=== PATIENT | female | born 1985 | race Caucasian/White ===

== ENCOUNTER 2020-03-17 13:12 | Outpatient (CLI) | payer BC ==
[2020-03-17 13:52] LABS: Appearance,Urine Cloudy (Clear); Bacteria,Urine Occasional /hpf; Bilirubin,Urine Negative (Negative); Blood,Urine Negative (Negative); Color,Urine Light Yellow; Glucose,Urine (UA) Negative (Negative); Ketones,Urine Negative (Negative); Leukocyte Esterase,Urine Negative (Negative); Mucus,Urine Rare /hpf; Nitrite,Urine Negative (Negative); PH, Urine 6.5 (5.0-8.0); Protein,Urine Negative (Negative); Specific Gravity,Urine 1.007 (1.001-1.035); Squamous Epithelial Cell,Urine 2 /hpf (0-4); Urobilinogen,Urine <2.0 mg/dL (<2.0); WBC,Urine 1 /hpf (0-5)
[2020-03-17 14:16] VITALS: BP 118/72; PULSE 115; RESP 18; TEMP 96.2
--- NOTE | 2020-03-25 08:53 | P.MSEPDOC ---
Presenting Problems - Arrival Data Date of Arrival on Unit: 03/17/20 Time of Arrival on Unit: 13:00 Mode of Transport: Ambulatory - Complaint OB-Reason for Admission/Chief Complaint: Rule Out SROM Comment: tightening & back pain Medical History - Information : 3 Para: 1 Term: 1 : 0 Abortions: Spontaneous or Elective: 1 Number of Living Children: 1 - Gestational Age Gestational Age by KARIN (wks/days): 39 Weeks and 0 Days - History Complications: Smoker Review of Systems - Review of Systems Constitutional: No problems Breast: No problems ENT: No problems Cardiovascular: No problems Respiratory: No problems Gastrointestinal: No problems Genitourinary: No problems Musculoskeletal: No problems Neurological: No problems Skin: No problems Vital Signs - Temperature Temperature: 96.2 F Temperature Source: Temporal Artery Scan - Pulse Right Sitting Brachial Pulse Rate: 115 Pulse Assessment Method: Automatic Cuff - Respirations Respiratory Rate: 18 O2 Sat by Pulse Oximetry: 96 - Blood Pressure Right Arm Sitting Blood Pressure: 118/72 Blood Pressure Mean: 87 Blood Pressure Source: Automatic Cuff Medical Screen Scoring (Pre) - Cervical Exam Dilation: 1-3 cm = 1 Membranes: Intact - Uterine Contractions Frequency: > 5 minutes apart = 1 Duration: N/A Intensity: N/A - Maternal Vital Signs Maternal Temperature: N/A Maternal Blood Pressure: N/A Signs of Preeclampsia: N/A Maternal Respirations: N/A - Maternal Trauma Maternal Trauma: N/A - Assessment - Baby A Baseline FHR: 130 Heart Rate - NICHD Category: Category I (Normal) = 0 NST: Reactive Position: N/A Station: N/A - Total Score - Baby A Total Score - Baby A: 2 - Total Score - Baby B Total Score - Baby B: 2 - Total Score - Baby C Total Score - Baby C: 2 - Level of Risk - Baby A Level of Risk - Baby A: Low (0-5) - Level of Risk - Baby B Level of Risk - Baby B: Low (0-5) - Level of Risk - Baby C Level of Risk - Baby C: Low (0-5) Physician Notification (Pre) - Physician Notified Physician Notified Date: 03/17/20 Physician Notified Time: 14:10 New Order Received: Yes - Notification Comment Comment: ut home. follow up with Dr Masters Sunday as scheduled. Disposition - Disposition OB Disposition: Physician follow up in office, Discharge to home Discharge Date: 03/17/20 Discharge Time: 14:16 I agree with the RN Medical Screening Exam: Yes Risk & Benefit of care provided described in d/c instruction: Yes Diagnosis: FALSE LABOR BEFORE 37 COMPLETED WEEKS OF GEST, THIRD TRI
== END 2020-03-17 14:20 | disposition home or self-care (01) ==
LOC: FBPOP 13:12
PROVIDERS: ATTEND Obstetrics & Gynecology
DX: O47.03 False labor before 37 completed weeks of gestation, third trimester (principal); O99.333 Smoking (tobacco) complicating pregnancy, third trimester; F17.200 Nicotine dependence, unspecified, uncomplicated; Z3A.39 39 weeks gestation of pregnancy
CPT/HCPCS: 59025; 81001; 84112; 99213

== ENCOUNTER 2020-03-29 06:00 | Inpatient (IN) | payer BC ==
[2020-03-29] MEDS ORDERED: DINOPROSTONE 10 MG INSERT.ER VAGINAL ONE (19:45)
[2020-03-29] MEDS ORDERED: BUTORPHANOL 1 MG/ML 1 ML VIAL IV PRN (20:13)
--- NOTE | 2020-03-29 20:19 | P.HPOB ---
History of Present Illness H&P Date: 03/29/20 Chief Complaint: 40-5/7 weeks, induction, unfavorable cervix The patient is a 34-year-old 3 para 1011 admitted at 40-5/7 weeks as established by 10 week ultrasound. She is admitted for postdates induction of labor with a relatively unfavorable cervix. As result, she has had Cervidil placed. Her has been uncomplicated and group B strep status is negative. On labor and delivery, all signs reassuring, category 1 heart rate tracing. Obstetrical history: 3 para 1011 with 1 term vaginal delivery without complications and one early elective interruption of .. Current statistics are listed in history present illness. EDC of 03/24/2020 was established by a 10 week ultrasound. Laboratory workup demonstrates a blood type of A+ with a negative antibody screen. Rubella status is immune. Remainder of the laboratory workup was within normal limits. Early Glucola and second trimester Glucola were also within normal limits. Group B strep status is negative. Gynecologic history: Unremarkable with no history of any infections to include STDs. Review of Systems Review of systems is confined to history of present illness. Past Medical History History of Any Multi-Drug Resistant Organisms: None Reported Smoking Status: Current every day smoker Medications and Allergies Home Medications Medication Instructions Recorded Confirmed Type Omeprazole [PriLOSEC] 10 mg PO DIRECTED 03/17/20 03/29/20 History Pnv No.95/Ferrous Fum/Folic AC 1 each PO DAILY 03/17/20 03/29/20 History [ Multivitamin Tablet] Allergies Allergy/AdvReac Type Severity Reaction Status Date / Time No Known Allergies Allergy Verified 03/17/20 13:30 Exam Intake and Output 03/29/20 03/29/20 03/29/20 06:59 14:59 22:59 Other: Weight 97.069 kg General, this is a well-developed, well-nourished white female in no acute distress. Her heart has a regular rhythm and rate without murmur. Her lungs are clear to auscultation bilaterally in all [place]. Her abdomen is gravid, nondistended, has normal active bowel sounds, is soft, nontender, and without any palpable masses aside from uterine fundus. Her extremities are without any cyanosis, clubbing, or edema and are nontender to palpation bilaterally. Digital cervical examination on straights her see 1 cm dilated, 50% effaced, with the vertex in presentation at -3 station. Cervidil is placed in the posterior vaginal fornix in standard fashion. Assessment and Plan (1) Post-dates Current Visit: Yes Status: Acute Code(s): O48.0 - POST-TERM SNOMED Code(s): 72222408 (2) Unfavorable cervix in term Current Visit: Yes Status: Acute Code(s): O34.40 - MATERNAL CARE FOR OTH ABNLT OF CERVIX, UNSP TRIMESTER SNOMED Code(s): 931411899 Plan: The patient is admitted for Cervidil cervical ripening to be followed by Pitocin induction if needed. The risks and complications of been thoroughly discussed and she has understood and agreed to proceed. She will have close maternal and surveillance and expectant management will be practiced. She is a good candidate for either IV or epidural analgesia, whichever she may choose.
[2020-03-29] MEDS: LACTATED RINGERS 1,000 ML IV SCH (21:16)
[2020-03-29 21:40] LABS: Basophils # (A) 0.1 k/uL (0-0.2); Basophils % (A) 0 %; Eosinophils # (A) 0.2 k/uL (0-0.7); Eosinophils % (A) 2 %; HCT 33.7 % (34.0-46.0); HGB 11.1 gm/dL (11.4-16.0); Lymphocytes # (A) 2.7 k/uL (1.0-4.8); Lymphocytes % (A) 20 %; MCH 29.8 pg (25.0-35.0); MCV 90.3 fL (80.0-100.0); Mean Platelet Volume 7.4; Monocytes # (A) 0.7 k/uL (0-1.0); Monocytes % (A) 5 %; Neutrophils # (A) 9.5 k/uL (1.3-7.7); Neutrophils % (A) 72 %; Platelet Count 579 k/uL (150-450); RBC 3.74 m/uL (3.80-5.40); RDW 13.3 % (11.5-15.5); WBC 13.3 k/uL (3.8-10.6)
[2020-03-30] MEDS ORDERED: TERBUTALINE 1 MG/ML VIAL SQ PRN (04:43)
[2020-03-30] MEDS ORDERED: CARBOPROST TROMETHAMINE 250 MCG/ML 1 ML AMP IM PRN (04:43)
[2020-03-30] MEDS ORDERED: LIDOCAINE 0.5% (PF) 5 MG/ML (50 ML SDV) SQ PRN (04:43)
[2020-03-30] MEDS ORDERED: OXYTOCIN 10 UNIT/ML 1 ML VIAL IM PRN (04:43)
[2020-03-30] MEDS ORDERED: METHYLERGONOVINE 0.2 MG/ML 1 ML AMP IM PRN (04:43)
[2020-03-30] MEDS ORDERED: OXYTOCIN 30 UNITS/500 ML NS 30 UNIT in SALINE 1 500ML.BAG IV SCH (04:45)
[2020-03-30] MEDS ORDERED: LACTATED RINGERS 1,000 ML IV SCH (04:45)
[2020-03-30] MEDS: LACTATED RINGERS 1,000 ML IV SCH ×2 (07:48→13:30)
[2020-03-30] MEDS ORDERED: ROPIVACAINE 100 MG, fentaNYL (PF) 200 MCG in SODIUM CHLORIDE 0.9% 76 ML EPIDURAL ONE (13:37)
[2020-03-30] MEDS ORDERED: PENICILLIN G POTASSIUM 5,000,000 UNIT in DEXTROSE 5% IN WATER 100 ML IVPB STA ×2 (19:05)
[2020-03-30] MEDS: PENICILLIN G POTASSIUM 2,500,000 UNIT in DEXTROSE 5% IN WATER 100 ML IVPB SCH ×2 (23:31)
[2020-03-30] MEDS ORDERED: CITRIC ACID-SODIUM CITRATE 15 ML CUP PO ONE (23:41)
[2020-03-31] MEDS ORDERED: OXYTOCIN 10 UNIT/ML 1 ML VIAL ONE (00:03)
[2020-03-31] MEDS ORDERED: ROPIVACAINE 5MG/ML 20ML VIAL ONE (00:03)
[2020-03-31] MEDS ORDERED: fentaNYL (PF) 50 MCG/ML 5 ML AMP ONE (00:03)
[2020-03-31] MEDS ORDERED: KETOROLAC 15 MG/ML 1 ML VIAL ONE (00:03)
[2020-03-31] MEDS ORDERED: SODIUM CHLORIDE 0.9% 100 ML BAG ONE (00:03)
[2020-03-31] MEDS ORDERED: diphenhydrAMINE 50 MG CAP PO PRN (00:51)
[2020-03-31] MEDS ORDERED: HYDROcodone/APAP 7.5-325MG 1 EACH TAB PO PRN (00:51)
[2020-03-31] MEDS ORDERED: diphenhydrAMINE 50 MG/ML 1 ML VIAL IVP PRN ×2 (00:51)
[2020-03-31] MEDS ORDERED: ONDANSETRON 4 MG/2 ML VIAL IVP PRN (00:51)
[2020-03-31] MEDS ORDERED: ZOLPIDEM 5 MG TAB PO PRN (00:51)
[2020-03-31] MEDS ORDERED: NALOXONE 0.4 MG/ML 1 ML VIAL IV PRN (00:51)
[2020-03-31] MEDS ORDERED: diphenhydrAMINE 25 MG CAP PO PRN (00:51)
[2020-03-31] MEDS ORDERED: HYDROcodone/APAP 5-325MG 1 EACH TAB PO PRN (00:51)
[2020-03-31] MEDS ORDERED: LANOLIN CREAM 5 GM TUBE TOPICAL PRN (00:51)
[2020-03-31] MEDS ORDERED: ACETAMINOPHEN TAB 325 MG TAB PO PRN (00:51)
[2020-03-31] MEDS ORDERED: METOCLOPRAMIDE 5 MG/ML 2 ML VIAL IVP PRN (00:51)
[2020-03-31] MEDS ORDERED: IBUPROFEN 600 MG TAB PO PRN (00:51)
[2020-03-31] MEDS ORDERED: LACTATED RINGERS 1,000 ML IV SCH (01:00)
[2020-03-31] MEDS ORDERED: OXYTOCIN 20 UNITS/1000 ML NS 1,000 ML IV SCH (01:00)
--- NOTE | 2020-03-31 01:00 | P.OP ---
Date of Procedure: 03/31/20 Preoperative Diagnosis: #1. 40-6/7 weeks, induction of labor #2. Arrest of dilation and descent #3. Suspected malpresentation Postoperative Diagnosis: Same Procedure(s) Performed: #1. Primary low transverse section Anesthesia: epidural Surgeon: Wayne Masters Metal Sorter #1: Glenda Sarmiento Estimated Blood Loss (ml): 500 IV fluids (ml): 1,000 Urine output (ml): 300 Pathology: none sent Condition: stable Disposition: floor Operative Findings: The patient had remained approximately 4 cm for greater than 6-8 hours with no descent during the entire day to lower than -2-3 station despite adequate contractions and ruptured membranes. The fetus was felt to be in a male presentation, possibly occiput posterior which was confirmed intraoperatively. She was taken to the operating room where she was delivered of a viable 9 lbs. 3 oz. baby boy with Apgars of 9 at 1 minute and 9 at 5 minutes delivered in the left occiput posterior position. The placenta was delivered manually, intact, and grossly normal with a grossly normal three-vessel cord. The uterus, tubes, and ovaries were entirely normal to inspection. Description of Procedure: The patient was prepped and draped in usual fashion after epidural anesthesia was bolused by the anesthesiologist. A Pfannenstiel incision was made and extended into the abdominal cavity without difficulty. The bladder peritoneum was noted to be distal to the intended site of incision was left intact. A 2 cm incision was made in the transverse plane of the lower uterine segment to enter the uterus after which time clear fluid was again noted. The incision was extended in both directions using the bandage scissors. The head was delivered up and through the incision and after noting it to be in the left occiput posterior position. The nose and mouth were thoroughly suctioned. Remainder of the was delivered onto the field where the cord was doubly clamped, cut, and the infant passed resuscitative measures with weight and Apgars as noted above. A segment of cord was doubly clamped, cut, and set aside should cord gases become necessary. The placenta was delivered manually and intact as noted above. The uterus was exteriorized and the interior cavity of the uterus swept of any remaining placental or membranous fragments. The margins of the uterine incision were grasped with Hawkins clamps and the uterine incision closed in 2 layers. The first layer was a running locking stitch of 0 chromic catgut followed by a running imbricating stitch of 0 chromic catgut. The posterior cul-de-sac was suctioned using a guard and the incision reexamined and found to be hemostatic. Uterus was replaced within the abdominal cavity and the gutters swept of any remaining blood, fluid, or clot. The incision was reexamined and any small points of bleeding made hemostatic with the Bovie. There was one point of bleeding in the right middle portion of the incision which was made hemostatic with a [id number] stitch of 0 chromic catgut. After ensuring hemostasis, the parietal peritoneum was loosely reapproximated and layer of muscles examined and made hemostatic with the Bovie. The fascia was closed with 2 running stitches of 0 Vicryl proceeding from each margin to the midpoint. The subcutaneous tissues were irrigated, made hemostatic with the Bovie, and reapproximated with a running stitch of 30 plain catgut. The skin was reapproximated with a running subcuticular stitch of 4-0 Vicryl. This was followed by half-inch Steri-Strips placed with Mastisol. Estimated blood loss for the entire case was approximate 500 mL. There were no complications. All sponge, instrument, needle counts were correct. The patient tolerated the procedure well and proceeded to the recovery room in stable condition. Both mother and are resting comfortably in recovery.
[2020-03-31] MEDS: PENICILLIN G POTASSIUM 2,500,000 UNIT in DEXTROSE 5% IN WATER 100 ML IVPB SCH ×2 (03:42)
[2020-03-31] MEDS ORDERED: DIPH,PERTUS(ACELL)TETVAC-LF 0.5 ML VIAL IM ONE (05:46)
[2020-03-31] MEDS ORDERED: INFLUENZA VACCINE (6 MOS+) 60 MCG/0.5 ML SYRINGE IM ONE (05:46)
[2020-03-31] MEDS: KETOROLAC 15 MG/ML 1 ML VIAL IVP PRN ×3 (06:59→20:24)
--- NOTE | 2020-03-31 08:37 | P.PNOBGPC ---
Subjective - Subjective Patient reports: Reports appetite normal, Reports voiding normally, Reports pain well controlled, Reports ambulating normally : doing well Objective - Vital Signs Latest vital signs: Vital Signs Temp Pulse Resp BP Pulse Ox 03/31/20 06:53 97.7 F 94 16 117/73 97 03/31/20 03:00 95 16 113/66 03/31/20 02:30 89 16 108/61 03/31/20 02:00 98.2 F 93 16 111/65 96 03/31/20 01:45 90 16 118/64 97 03/31/20 01:30 92 16 120/61 98 03/31/20 01:15 96 16 122/64 98 03/31/20 01:00 97.5 F L 100 16 138/61 98 Intake and Output 03/30/20 03/31/20 03/31/20 22:59 06:59 14:59 Output Total 200 2750 Balance -200 -2750 Output: Urine 200 1750 Estimated Blood Loss 1000 Other: # Voids 0 0 - Exam Extremities: Present: normal Abdomen: Present: normal appearance, soft. Absent: distention, tenderness Incision: Present: normal, dry, intact Uterus: Present: normal, firm (The uterine fundus is tonic and appropriately tender at the umbilicus.) Assessment and Plan (1) Post-dates Current Visit: Yes Status: Acute Code(s): O48.0 - POST-TERM SNOMED Code(s): 36153119 (2) Unfavorable cervix in term Current Visit: Yes Status: Acute Code(s): O34.40 - MATERNAL CARE FOR OTH ABNLT OF CERVIX, UNSP TRIMESTER SNOMED Code(s): 171325229 (3) Status post section Current Visit: Yes Status: Acute Code(s): Z98.891 - HISTORY OF UTERINE SCAR FROM PREVIOUS SURGERY SNOMED Code(s): 581068283 Plan: Continue routine postoperative care. I have encouraged the patient and with the hallways at least 4 times daily if not more. She is tolerating regular diet. She is a potential candidate for discharge home tomorrow morning pending no further issues or complications.
[2020-03-31] MEDS: SENNOSIDES-DOCUSATE SODIUM 1 EACH TAB PO SCH ×2 (13:00→20:24)
[2020-03-31] MEDS ORDERED: CALCIUM CARBONATE 500 MG CHEWABLE PO PRN (19:58)
[2020-03-31] MEDS ORDERED: SIMETHICONE 80 MG CHEWABLE PO PRN (20:04)
[2020-04-01 00:53] VITALS: PULSE 82
[2020-04-01] MEDS: SENNOSIDES-DOCUSATE SODIUM 1 EACH TAB PO SCH (07:34)
[2020-04-01 08:16] VITALS: BP 127/86; RESP 18; TEMP 98.3
--- NOTE | 2020-04-01 08:36 | P.DS ---
Providers Date of admission: 03/29/20 19:05 Expected date of discharge: 04/01/20 Attending physician: Wayne Masters Primary care physician: Stated None - Discharge Diagnosis(es) (1) Post-dates Current Visit: Yes Status: Acute (2) Unfavorable cervix in term Current Visit: Yes Status: Acute (3) Status post section Current Visit: Yes Status: Acute Hospital Course: And is a 34-year-old 3 para 1011 admitted at 40-5/7 weeks for Cervidil cervical ripening to be followed by Pitocin induction. Her was uncomplicated and group B strep status is negative. On labor and delivery, all signs reassuring. She had a Cervidil placed and made minimal to no progress overnight. She did have Pitocin started followed by artificial rupture of membranes the following morning and was managed aggressively throughout the day. She made very gradual and minimal progress and ultimately remained approximate 4 synovators dilated for 6-8 hours despite adequate contractions and rupture of membranes. station never descended below -2-3 station. As result, she was taken the operating room where she underwent primary low-transverse section and uncomplicated fashion was delivered of a viable 9 lbs. 3 oz. baby boy with Apgars of 9 at 1 minute and 9 at 5 in its. Her postoperative course has been entirely uncomplicated with vital signs remaining stable and her temperature was afebrile throughout. She was deemed stable for discharge on and postoperative day #1 and she delivered shortly after midnight on day of surgery. She was discharged home to follow-up in the office in 2 weeks for an incision check and 6 weeks routinely. Discharge instructions included calling for any significantly increased bleeding or foul-smelling lochia, significantly increased fever or abdominal pain, perineal complaints, breast complaints, incisional complaints, or anything else that concerned her. She is additionally instructed to have nothing in vagina for at least 6 weeks time to include intercourse and to abstain from any heavy lifting over the same period of time. She was last instructed to do no driving until off of all pain medications or 2 weeks' time, whichever came first. She understood all of her instructions and agrees to follow up as noted above. Discharge medications included continued vitamins as she has opted to breast-feed as well as [id number] analgesic pain medications. She was additionally provided with a prescription for [place] 5/325 mg, 1-2 by mouth every 6 hours when necessary pain, #20 dispensed with no refills. Maternal blood type is A+ and rubella status is immune. Discharge hemoglobin and hematocrit were 11.1 and 33.7 respectively. Procedures: #1. Cervidil cervical ripening #2. Pitocin induction #3. Artificial rupture of membranes #4. Epidural analgesia #5. Primary low-transverse section Patient Condition at Discharge: Stable Plan - Discharge Summary New Discharge Prescriptions: No Action Pnv No.95/Ferrous Fum/Folic AC [ Multivitamin Tablet] 1 each PO DAILY Omeprazole [PriLOSEC] 10 mg PO DIRECTED Discharge Medication List Omeprazole [PriLOSEC] 10 mg PO DIRECTED 03/17/20 [History] Pnv No.95/Ferrous Fum/Folic AC [ Multivitamin Tablet] 1 each PO DAILY 03/17/20 [History] Follow up Appointment(s)/Referral(s): Wayne Masters MD [STAFF PHYSICIAN] - 2 Weeks Discharge Disposition: HOME SELF-CARE
[2020-04-01 09:40] LABS: Basophils % (A) 0 %; Eosinophils # (A) 0.4 k/uL (0-0.7); Eosinophils % (A) 3 %; HGB 10.4 gm/dL (11.4-16.0); Hypochromasia Slight; Lymphocytes % (A) 14 %; MCH 30.2 pg (25.0-35.0); MCHC 32.5 g/dL (31.0-37.0); Mean Platelet Volume 7.2; Monocytes # (A) 0.6 k/uL (0-1.0); Monocytes % (A) 4 %; Neutrophils # (A) 11.4 k/uL (1.3-7.7); Neutrophils % (A) 78 %; Platelet Count 510 k/uL (150-450); RBC 3.44 m/uL (3.80-5.40); RDW 13.3 % (11.5-15.5); WBC 14.6 k/uL (3.8-10.6)
== END 2020-04-01 10:59 | disposition home or self-care (01) | DRG 788 ==
LOC: 4FBP 19:05
PROVIDERS: ADMIT Obstetrics & Gynecology; ATTEND Obstetrics & Gynecology
PROC: 10907ZC Drainage of Amniotic Fluid, Therapeutic from Products of Conception, Via Natural or Artificial Opening (ICD-10-PCS; 2020-03-29)
PROC: 00HU33Z Insertion of Infusion Device into Spinal Canal, Percutaneous Approach (ICD-10-PCS; 2020-03-29)
PROC: 3E033VJ Introduction of Other Hormone into Peripheral Vein, Percutaneous Approach (ICD-10-PCS; 2020-03-29)
PROC: 3E0R3NZ Introduction of Analgesics, Hypnotics, Sedatives into Spinal Canal, Percutaneous Approach (ICD-10-PCS; 2020-03-29)
PROC: 3E0P7VZ Introduction of Hormone into Female Reproductive, Via Natural or Artificial Opening (ICD-10-PCS; 2020-03-29)
PROC: 10D00Z1 Extraction of Products of Conception, Low, Open Approach (ICD-10-PCS; principal; 2020-03-31 00:05)
DX: O62.1 Secondary uterine inertia (principal); O48.0 Post-term pregnancy; O32.9XX0 Maternal care for malpresentation of fetus, unspecified, not applicable or unspecified; Z3A.40 40 weeks gestation of pregnancy; Z37.0 Single live birth; O99.334 Smoking (tobacco) complicating childbirth; F17.200 Nicotine dependence, unspecified, uncomplicated
CPT/HCPCS: 85025; 86850; 86900; 86901; 90686; 90715

== ENCOUNTER → 2020-11-12 | Outpatient (CLI) | payer BC, OTHER ==
--- NOTE | 2020-11-18 11:03 | MM ---
Reason for exam: clinical finding. History: Took hormonal contraceptives beginning at age 19. Physical Findings: Nurse Summary: 0.5 x 2cm nodule in the left breast at 1-2 o'clock (nurse db). MG 3D Diag Mammo W/Cad KENN Bilateral CC, MLO, LM, and spot compression MLO view(s) were taken. The breast tissue is heterogeneously dense. This may lower the sensitivity of mammography. Irregular appearance to tissue superiorly in both breasts. This disperses on additional views. Palpable marker 1-2 o'clock left breast. These results were verbally communicated with the patient and result sheet given to the patient on 11/12/20. ASSESSMENT: Incomplete: need additional imaging evaluation, BI-RAD 0 RECOMMENDATION: Ultrasound of the left breast.
--- NOTE | 2020-11-18 11:06 | USB ---
Reason for exam: additional evaluation requested from abnormal screening. History: Took hormonal contraceptives beginning at age 19. US Breast Limited LT Left limited breast ultrasound including focal area of concern, retroareolar and axilla demonstrates a 2.1 x 2.4 x 0.7cm oval lymph node at the axilla, large but benign morphology. Ridges of dense tissue are noted at the palpable site. Scanned 12-2 o'clock. These results were verbally communicated with the patient and result sheet given to the patient on 11/12/20. ASSESSMENT: Benign, BI-RAD 2 RECOMMENDATION: Routine screening mammogram of both breasts at age 40. Manage patient on a clinical basis. Clinical follow up of the left upper outer quadrant palpable area. If any enlarging abnormality the patient can be rescanned.
== END | disposition home or self-care (01) ==
LOC: RADMAMWWP 14:26
PROVIDERS: ATTEND Obstetrics & Gynecology
DX: R92.2 Inconclusive mammogram (principal); R59.0 Localized enlarged lymph nodes
CPT/HCPCS: 77062; 77066

== ENCOUNTER → 2021-04-21 | Day surgery (SDC) | payer BC, OTHER ==
--- NOTE | 2021-04-21 14:09 | USB ---
Reason for exam: clinical finding. History: Took hormonal contraceptives beginning at age 19. Physical Findings: Nurse did not find any significant physical abnormalities on exam. US Breast Limited LT Left limited breast ultrasound including focal area of concern, retroareolar and axilla demonstrates a 1.5 x 1.3 x 0.7cm lymph node at the axilla, larger of two. These results were verbally communicated with the patient and result sheet given to the patient on 04/21/21. ASSESSMENT: Benign, BI-RAD 2 RECOMMENDATION: Routine screening mammogram of both breasts at age 40. Manage patient on a clinical basis.
== END ==
LOC: RADUSWWP 12:31
PROVIDERS: ATTEND Student in an Organized Health Care Education/Training Program
DX: N63.20 Unspecified lump in the left breast, unspecified quadrant (principal); Z53.9 Procedure and treatment not carried out, unspecified reason